=== PATIENT | male | born 1970 | race African-American/Black ===

== ENCOUNTER 2017-05-23 21:24 | Inpatient (IN) | payer MEDICARE ==
[~2017-05-23] VITALS: Ht 185.4 cm; Wt 132.0 kg
[2017-05-23 21:52] VITALS: BP 167/97; PULSE 90; RESP 18; TEMP 99.1; O2SAT 97
[2017-05-23] MEDS ORDERED: RALT400 PO (23:06)
[2017-05-23] MEDS ORDERED: EMTR1TAB5 PO (23:06)
[2017-05-23] MEDS ORDERED: REME30TA PO (23:06)
[2017-05-23] MEDS ORDERED: ABIL30TA5 PO (23:06)
[2017-05-23] MEDS ORDERED: VENL37.5 PO (23:06)
[2017-05-23] MEDS ORDERED: AMLO10 PO (23:06)
--- NOTE | 2017-05-23 23:46 | PD ---
HPI Chief Complaint: Psychiatric Symptoms Time Seen by Provider: 22:36 Travel History International Travel<30 days: No Contact w/Intl Traveler<30days: No Traveled to known affect area: No History of Present Illness HPI 47-year-old black male presents emergency department as a transfer from [facility] under a Pina act for psychological evaluation. The psychiatrist is except of the patient's transfer was placed under a Pina act in the ER. Patient has a history of HIV, substance abuse and depression. Patient had stated that he was going to overdose. Patient was medically cleared and transferred. Here in the ER the patient has no medical complaints. He does admit to feeling depressed and suicidal. He has no vertigo he is homeless. Patient states that his CD4 is over 400. No aids defining disease. PFSH Past Medical History Narrative Medical Depression, HIV Tetanus Vaccination: < 5 Years Social History Alcohol Use: Yes Tobacco Use: Yes Substance Use: Yes (Cocaine) Allergies-Medications Reported Meds & Prescriptions Reported Meds & Active Scripts Active Reported Effexor (Venlafaxine HCl) 37.5 Mg Tab 37.5 Mg PO Q12H Remeron (Mirtazapine) 30 Mg Tab Unknown Dose PO HS Abilify (Aripiprazole) 30 Mg Tab 25 Mg PO DAILY Norvasc (Amlodipine Besylate) 10 Mg Tab 10 Mg PO DAILY Isentress (Raltegravir) 400 Mg Tab 300 Mg PO BID Truvada (Emtricitabine-Tenofovir Disoproxil Fumarate) Unknown Strength Tab Unknown Dose PO DAILY Review of Systems Except as stated in HPI: all other systems reviewed are Neg Physical Exam Narrative GENERAL: Well-nourished, well-developed patient. SKIN: Warm and dry. HEAD: Normocephalic and atraumatic. EYES: No scleral icterus. No injection or drainage. ENT: No nasal drainage noted. Mucous membranes pink. Airway patent. NECK: Supple, trachea midline. Moves head freely without obvious discomfort. CARDIOVASCULAR: Regular rate and rhythm without murmurs, gallops, or rubs. RESPIRATORY: Breath sounds equal bilaterally. No accessory muscle use. GASTROINTESTINAL: Abdomen soft, non-tender, nondistended. EXTREMITIES: No cyanosis or edema. BACK: Nontender without obvious deformity. No CVA tenderness. NEURO: Patient is alert and oriented. no sensorimotor deficits. Nonfocal. Normal speech. PSYCH: No delusions. No auditory or visual hallucinations. Data Data Last Documented VS Vital Signs Date Time Temp Pulse Resp B/P (MAP) Pulse Ox O2 Delivery O2 Flow Rate FiO2 05/23/17 21:52 99.1 90 18 167/97 (120) 97 Room Air Orders Orders Psych Screen (05/23/17 22:37) MDM Medical Decision Making Medical Screen Exam Complete: Yes Emergency Medical Condition: Yes Medical Record Reviewed: Yes Interpretation(s) Laboratory tests reviewed. Differential Diagnosis MDM: High Differential diagnoses: Schizophrenia, schizoaffective disorder, bipolar, anxiety, depression, adjustment reaction, mood disorder NOS, ODD, depressive disorder NOS, dementia, dementia with agitation, psychosis NOS, substance induced mood disorder, DMDD, Asperger syndrome, infection,electrolyte abnormality, malingering. Narrative Course Mental health screening discussed with the patient. Psychiatric screen ordered. The patient has been medically cleared. This is medical clearance for psychiatric admission, substance abuse Diagnosis Primary Impression: Medical clearance for psychiatric admission Additional Impression: Substance abuse Condition: Stable Vega Werner May 23, 2017 23:46
[2017-05-24 02:13] VITALS: BP 157/96; PULSE 75; RESP 18; TEMP 98.2; O2SAT 99
[2017-05-24 06:21] VITALS: BP 143/67; PULSE 78; RESP 18; TEMP 98; O2SAT 98
[2017-05-24] MEDS ORDERED: BENZTROPINE MESYLATE 2 MG/2 ML VIAL IM PRN (07:15)
[2017-05-24] MEDS ORDERED: ACETAMINOPHEN 325 MG TAB PO PRN (07:15)
[2017-05-24] MEDS ORDERED: NICOTINE 21 MG/24 HR PATCH T-DERMAL PRN (07:15)
[2017-05-24] MEDS ORDERED: hydrOXYzine HCL 50 MG TAB PO PRN (07:15)
[2017-05-24] MEDS ORDERED: ALUMINUM/MAGNESIUM/SIMETH 30 ML CUP PO PRN (07:15)
[2017-05-24] MEDS ORDERED: MAGNESIUM HYDROXIDE SUSP 30 ML CUP PO PRN (07:15)
[2017-05-24] MEDS ORDERED: BENZTROPINE MESYLATE 1 MG TAB PO PRN (07:15)
[2017-05-24] MEDS ORDERED: diphenhydrAMINE HCL 50 MG CAP PO PRN (07:15)
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
[2017-05-24 10:57] VITALS: BP 154/104; PULSE 88; RESP 18; TEMP 98.1; O2SAT 99
[2017-05-24] MEDS: ARIPiprazole 10 MG TAB PO SCH (11:15)
[2017-05-24] MEDS: VENLAFAXINE HCL XR 75 MG CAP PO SCH (11:16)
[2017-05-24] MEDS ORDERED: PILL SPLITTER OTHER PRN (12:45)
[2017-05-24] MEDS: RALTEGRAVIR 400 MG TAB PO SCH ×2 (14:02→20:21)
[2017-05-24] MEDS: EMTRICITABINE/TENOFOVIR 200 MG/300 MG TAB PO SCH (14:02)
--- NOTE | 2017-05-24 14:03 | PD.CONS ---
HPI Service [facility] Hospitalists Consult Requested By Dr Valentine Reason for Consult Medical management. Primary Care Physician Unknown Diagnoses: Review of Systems As per HPI, other systems reviewed by me and negative. Past Family Social History Allergies: Coded Allergies: haloperidol (Unverified Allergy, Unknown, 05/24/17) lisinopril (Unverified Allergy, Unknown, 05/24/17) lorazepam (Unverified Allergy, Unknown, 05/24/17) quetiapine (Unverified Allergy, Unknown, 05/24/17) ziprasidone (Unverified Allergy, Unknown, 05/24/17) Past Medical History 1. Hypertension. 2. HIV on HAART. 3. Schizoaffective disorder. Reported Medications Reported Meds & Active Scripts Active Reported Abilify (Aripiprazole) 30 Mg Tab 25 Mg PO DAILY Norvasc (Amlodipine Besylate) 10 Mg Tab 10 Mg PO DAILY Isentress (Raltegravir) 400 Mg Tab 300 Mg PO BID Truvada (Emtricitabine-Tenofovir Disoproxil Fumarate) Unknown Strength Tab Unknown Dose PO DAILY Active Ordered Medications Current Medications Medications (Trade) Dose Ordered Sig/Delma Route Start Time Stop Time Status Last Admin (Norvasc) 10 mg DAILY PO 05/24/17 09:00 05/24/17 11:16 (Abilify) 25 mg DAILY PO 05/24/17 09:00 05/24/17 11:15 (Isentress) 300 mg BID PO 05/24/17 09:00 (Truvada 200-300 Mg) 1 tab DAILY PO 05/24/17 09:00 (Latuda) 40 mg WITH DINNER PO 05/24/17 18:00 (Effexor Xr) 75 mg DAILY PO 05/24/17 09:00 05/24/17 11:16 (Benadryl) 50 mg HS PRN PO 05/24/17 07:15 (Tylenol) 650 mg Q4H PRN PO 05/24/17 07:15 (Milk Of Magnesia Liq) 30 ml DAILY PRN PO 05/24/17 07:15 (Mag-Al Plus Susp Liq) 30 ml Q6H PRN PO 05/24/17 07:15 (Atarax) 50 mg Q6H PRN PO 05/24/17 07:15 (Cogentin) 1 mg Q12H PRN PO 05/24/17 07:15 (Cogentin Inj) 1 mg Q12H PRN IM 05/24/17 07:15 (Habitrol 21 Mg Patch.24 Hr) 1 patch DAILY T-DERMAL 05/24/17 09:00 Miscellaneous Information 1 HS T-DERMAL 05/24/17 21:00 (Pill Splitter) 1 ea UNSCH PRN OTHER 05/24/17 12:45 Physical Exam Vital Signs Vital Signs Date Time Temp Pulse Resp B/P (MAP) Pulse Ox O2 Delivery O2 Flow Rate FiO2 05/24/17 10:57 98.1 88 18 154/104 (121) 99 05/24/17 10:30 05/24/17 06:21 98.0 78 18 143/67 (92) 98 Room Air 05/24/17 02:13 98.2 75 18 157/96 (116) 99 Room Air 05/23/17 21:52 99.1 90 18 167/97 (120) 97 Room Air Physical Exam GENERAL: This is a well-nourished, well-developed patient, in no apparent distress. SKIN: No rashes, ecchymoses or lesions. Cool and dry. HEAD: Atraumatic. Normocephalic. No temporal or scalp tenderness. EYES: Pupils equal round and reactive. Extraocular motions intact. No scleral icterus. No injection or drainage. ENT: Nose without bleeding, purulent drainage or septal hematoma. Throat without erythema, tonsillar hypertrophy or exudate. Uvula midline. Airway patent. NECK: Trachea midline. No JVD or lymphadenopathy. Supple, nontender, no meningeal signs. CARDIOVASCULAR: Regular rate and rhythm without murmurs, gallops, or rubs. RESPIRATORY: Clear to auscultation. Breath sounds equal bilaterally. No wheezes , rales, or rhonchi. GASTROINTESTINAL: Abdomen soft, non-tender, nondistended. No hepato-splenomegaly , or palpable masses. No guarding. MUSCULOSKELETAL: Extremities without clubbing, cyanosis, or edema. No joint tenderness, effusion, or edema noted. No calf tenderness. Negative Homans sign bilaterally. NEUROLOGICAL: Awake and alert. Cranial nerves II through XII intact. Motor and sensory grossly within normal limits. Five out of 5 muscle strength in all muscle groups. Normal speech. Assessment and Plan Problem List: (1) Schizoaffective disorder ICD Code: F25.9 - Schizoaffective disorder, unspecified (2) Substance abuse ICD Code: F19.10 - Other psychoactive substance abuse, uncomplicated Status: Acute (3) HTN (hypertension) ICD Code: I10 - Essential (primary) hypertension Problem Qualifiers (1) Schizoaffective disorder: Qualified Codes: F25.1 - Schizoaffective disorder, depressive type Edison Peterson MD May 24, 2017 14:02
[2017-05-24] MEDS: NICOTINE 21 MG/24 HR PATCH T-DERMAL SCH (14:04)
[2017-05-24] MEDS: LURASIDONE 40 MG TAB PO SCH (17:40)
[2017-05-24] MEDS: REMOVE OLD NICODERM (NICOTINE) PATCH T-DERMAL SCH (21:00)
[2017-05-25 05:58] VITALS: BP 152/83; PULSE 84; RESP 16; TEMP 98.4
[2017-05-25] MEDS: ARIPiprazole 10 MG TAB PO SCH (08:01)
[2017-05-25] MEDS: RALTEGRAVIR 400 MG TAB PO SCH ×2 (08:02→20:38)
[2017-05-25] MEDS: EMTRICITABINE/TENOFOVIR 200 MG/300 MG TAB PO SCH (08:02)
[2017-05-25] MEDS: VENLAFAXINE HCL XR 75 MG CAP PO SCH (08:02)
[2017-05-25] MEDS: NICOTINE 21 MG/24 HR PATCH T-DERMAL SCH (08:05)
[2017-05-25 08:54] LABS: AUTOMATED NEUTROPHIL # 1.8 TH/MM3 (1.8-7.7); BASOPHIL % 0.4 % (0.0-2.0); EOSINOPHIL # 0.1 TH/MM3 (0-0.4); EOSINOPHIL % 3.7 % (0.0-4.0); HEMATOCRIT 39.2 % (39.0-51.0); HEMOGLOBIN 13.3 GM/DL (13.0-17.0); LYMPH % 41.5 % (9.0-44.0); LYMPHOCYTE # 1.6 TH/MM3 (1.0-4.8); MEAN CELL VOLUME 78.1 FL (80.0-100.0); MEAN CORPUSCULAR HEMOGLOBIN 26.6 PG (27.0-34.0); MEAN CORPUSCULAR HGB CONC 34.1 % (32.0-36.0); MEAN PLATELET VOLUME 6.8 FL (7.0-11.0); MONO % 7.6 % (0.0-8.0); MONOCYTE # 0.3 TH/MM3 (0-0.9); NEUT % 46.8 % (16.0-70.0); PLATELET COUNT 251 TH/MM3 (150-450); RED BLOOD COUNT 5.02 MIL/MM3 (4.50-5.90); RED CELL DISTRIBUTION WIDTH 15.6 % (11.6-17.2); WHITE BLOOD COUNT 3.8 TH/MM3 (4.0-11.0)
[2017-05-25 09:20] LABS: CHOLESTEROL 143 MG/DL (120-200); TRIGLYCERIDES 62 MG/DL (42-150)
[2017-05-25 09:21] LABS: CHOLESTEROL/ HDL RATIO 2.79 RATIO; HDL CHOLESTEROL 51.1 MG/DL (40.0-60.0); LDL CHOLESTEROL 80 MG/DL (0-99)
--- NOTE | 2017-05-25 13:56 | HHI.PYPN ---
Subjective Remarks Patient seen in his room with nurse Sana. Patient initially admitted by Dr. Austen Frias's H&P reviewed and agreed with. I have done the psychiatric admission orders template. And reviewed the med reconciliation. Patient seen in his room he is alert oriented calm and reset Afro-Irish male. He is cooperative and pleasant. Acknowledges continued suicidal ideation. Acknowledges past suicide attempts. Acknowledges the cocaine addiction he says it is more he is homeless at the present time. States she is able to do day work and would be a state in a sober house referral locally if possible. Were with the present time he still remains suicidal. Will continue medication as started by Dr. Frias continue to follow. Review of Systems Except as stated in HPI: all other systems reviewed are Neg Mental Status Examination Appearance: Appropriate Consciousness: Alert Orientation: x4 Motor Activity: Normal gait Speech: Unremarkable Language: Adequate Fund of Knowledge: Adequate Attention and Concentration: Adequate Memory: Unremarkable Mood: Sad Affect: Other (decreased range and intensity) Thought Process & Associations: Intact Thought Content: Appropriate, Hallucinations (some vague voices) Hallucination Type: Auditory (some vague auditory hallucinations) Delusion Type: None Suicidal Ideation: Yes Suicidal Plan: No Suicidal Intention: No Homicidal Ideation: No Homicidal Plan: No Homicidal Intention: No Insight: Fair Judgment: Impulsive Results Labs Test 05/25/17 07:59 White Blood Count 3.8 TH/MM3 Red Blood Count 5.02 MIL/MM3 Hemoglobin 13.3 GM/DL Hematocrit 39.2 % Mean Corpuscular Volume 78.1 FL Mean Corpuscular Hemoglobin 26.6 PG Mean Corpuscular Hemoglobin Concent 34.1 % Red Cell Distribution Width 15.6 % Platelet Count 251 TH/MM3 Mean Platelet Volume 6.8 FL Neutrophils (%) (Auto) 46.8 % Lymphocytes (%) (Auto) 41.5 % Monocytes (%) (Auto) 7.6 % Eosinophils (%) (Auto) 3.7 % Basophils (%) (Auto) 0.4 % Neutrophils # (Auto) 1.8 TH/MM3 Lymphocytes # (Auto) 1.6 TH/MM3 Monocytes # (Auto) 0.3 TH/MM3 Eosinophils # (Auto) 0.1 TH/MM3 Basophils # (Auto) 0.0 TH/MM3 CBC Comment DIFF FINAL Differential Comment Triglycerides Level 62 MG/DL Cholesterol Level 143 MG/DL LDL Cholesterol 80 MG/DL HDL Cholesterol 51.1 MG/DL Cholesterol/HDL Ratio 2.79 RATIO Vitals/IOs Vital Signs Date Time Temp Pulse Resp B/P (MAP) Pulse Ox O2 Delivery O2 Flow Rate FiO2 05/25/17 05:58 98.4 84 16 152/83 (106) 05/24/17 10:57 99 05/24/17 06:21 Room Air Assessment & Plan Problem List: (1) Schizoaffective disorder ICD Codes: F25.9 - Schizoaffective disorder, unspecified (2) Substance abuse ICD Codes: F19.10 - Other psychoactive substance abuse, uncomplicated Status: Acute Assessment & Plan Estimated LOS: days this time patient meets criteria for inpatient psychiatric hospitalization on a voluntary basis. We'll start medication as described to Dr. Frias. Also his be short stay and seemed less patient also make a referral to sober living facility Justification for Cont. Inpt. At this time patient decompensated placed a lower level of care Discharge Planning Consider sober living facility Request HC Surrog/Guard Advoc?: No Problem Qualifiers (1) Schizoaffective disorder: Qualified Codes: F25.1 - Schizoaffective disorder, depressive type Jose Holt MD May 25, 2017 13:56
[2017-05-25] MEDS ORDERED: hydrOXYzine HCL 50 MG TAB PO PRN (14:00)
--- NOTE | 2017-05-25 15:51 | PD.CONS ---
HPI Service [facility] Hospitalists Consult Requested By Dr Valentine Reason for Consult Medical management. Primary Care Physician Unknown Diagnoses: (1) Schizoaffective disorder (2) Substance abuse (3) HTN (hypertension) History of Present Illness This is a 47-year-old -Q[place] male with past nuchal history of hypertension, HIV, schizoaffective disorder and cocaine abuse, who presents to [facility] as a transfer from an outside hospital under a Pina act. Documentation from outside the hospital stated that the patient made suicidal statements. The patient states that he still suicidal and feels depressed. The patient denies any chest pain, shortness of breath, headache, blurry vision, double vision, dysuria, abdominal pain, nausea, vomiting, diarrhea. I am being consulted for medical management of the patient. Patient has history of HIV on HAART on the patient states that he is compliant with his medications. Review of Systems As per HPI, other systems reviewed by me and negative. Past Family Social History Allergies: Coded Allergies: haloperidol (Unverified Allergy, Unknown, 05/24/17) lisinopril (Unverified Allergy, Unknown, 05/24/17) lorazepam (Unverified Allergy, Unknown, 05/24/17) quetiapine (Unverified Allergy, Unknown, 05/24/17) ziprasidone (Unverified Allergy, Unknown, 05/24/17) Past Medical History 1. Hypertension. 2. HIV on HAART. 3. Cocaine abuse. 4. Schizophrenic disorder. Past Surgical History Denies surgeries Reported Medications Reported Meds & Active Scripts Active Reported Abilify (Aripiprazole) 30 Mg Tab 25 Mg PO DAILY Norvasc (Amlodipine Besylate) 10 Mg Tab 10 Mg PO DAILY Isentress (Raltegravir) 400 Mg Tab 300 Mg PO BID Truvada (Emtricitabine-Tenofovir Disoproxil Fumarate) Unknown Strength Tab Unknown Dose PO DAILY Active Ordered Medications Current Medications Medications (Trade) Dose Ordered Sig/Delma Route Start Time Stop Time Status Last Admin (Norvasc) 10 mg DAILY PO 05/24/17 09:00 05/25/17 08:02 (Abilify) 25 mg DAILY PO 05/24/17 09:00 05/25/17 08:01 (Isentress) 300 mg BID PO 05/24/17 09:00 3/6/18 08:02 (Truvada 200-300 Mg) 1 tab DAILY PO 05/24/17 09:00 05/25/17 08:02 (Latuda) 40 mg WITH DINNER PO 05/24/17 18:00 05/24/17 17:40 (Effexor Xr) 75 mg DAILY PO 05/24/17 09:00 05/25/17 08:02 (Benadryl) 50 mg HS PRN PO 05/24/17 07:15 05/24/17 20:44 (Tylenol) 650 mg Q4H PRN PO 05/24/17 07:15 (Milk Of Magnesia Liq) 30 ml DAILY PRN PO 05/24/17 07:15 (Mag-Al Plus Susp Liq) 30 ml Q6H PRN PO 05/24/17 07:15 (Cogentin) 1 mg Q12H PRN PO 05/24/17 07:15 (Cogentin Inj) 1 mg Q12H PRN IM 05/24/17 07:15 (Habitrol 21 Mg Patch.24 Hr) 1 patch DAILY T-DERMAL 05/24/17 09:00 Miscellaneous Information 1 HS T-DERMAL 05/24/17 21:00 (Pill Splitter) 1 ea UNSCH PRN OTHER 05/24/17 12:45 (Atarax) 50 mg Q6H PRN PO 05/25/17 14:00 Family History Patient states that paternal uncle has hypertension or diabetes. Social History The patient denies smoking. Drinks alcohol on the weekends. Admits to cocaine use. Physical Exam Vital Signs Vital Signs Date Time Temp Pulse Resp B/P (MAP) Pulse Ox O2 Delivery O2 Flow Rate FiO2 05/25/17 05:58 98.4 84 16 152/83 (106) Physical Exam GENERAL: This is a well-nourished, well-developed patient, in no apparent distress. SKIN: No rashes, ecchymoses or lesions. Cool and dry. HEAD: Atraumatic. Normocephalic. No temporal or scalp tenderness. EYES: Pupils equal round and reactive. Extraocular motions intact. No scleral icterus. No injection or drainage. ENT: Nose without bleeding, purulent drainage or septal hematoma. Throat without erythema, tonsillar hypertrophy or exudate. Uvula midline. Airway patent. NECK: Trachea midline. No JVD or lymphadenopathy. Supple, nontender, no meningeal signs. CARDIOVASCULAR: Regular rate and rhythm without murmurs, gallops, or rubs. RESPIRATORY: Clear to auscultation. Breath sounds equal bilaterally. No wheezes , rales, or rhonchi. GASTROINTESTINAL: Abdomen soft, non-tender, nondistended. No hepato-splenomegaly , or palpable masses. No guarding. MUSCULOSKELETAL: Extremities without clubbing, cyanosis, or edema. No joint tenderness, effusion, or edema noted. No calf tenderness. Negative Homans sign bilaterally. NEUROLOGICAL: Awake and alert. Cranial nerves II through XII intact. Motor and sensory grossly within normal limits. Five out of 5 muscle strength in all muscle groups. Normal speech. Laboratory Laboratory Tests Test 05/25/17 07:59 White Blood Count 3.8 Red Blood Count 5.02 Hemoglobin 13.3 Hematocrit 39.2 Mean Corpuscular Volume 78.1 Mean Corpuscular Hemoglobin 26.6 Mean Corpuscular Hemoglobin Concent 34.1 Red Cell Distribution Width 15.6 Platelet Count 251 Mean Platelet Volume 6.8 Neutrophils (%) (Auto) 46.8 Lymphocytes (%) (Auto) 41.5 Monocytes (%) (Auto) 7.6 Eosinophils (%) (Auto) 3.7 Basophils (%) (Auto) 0.4 Neutrophils # (Auto) 1.8 Lymphocytes # (Auto) 1.6 Monocytes # (Auto) 0.3 Eosinophils # (Auto) 0.1 Basophils # (Auto) 0.0 CBC Comment DIFF FINAL Differential Comment Triglycerides Level 62 Cholesterol Level 143 LDL Cholesterol 80 HDL Cholesterol 51.1 Cholesterol/HDL Ratio 2.79 Result Diagram: 05/25/17 0759 Assessment and Plan Problem List: (1) Schizoaffective disorder ICD Code: F25.9 - Schizoaffective disorder, unspecified (2) Substance abuse ICD Code: F19.10 - Other psychoactive substance abuse, uncomplicated Status: Acute (3) HTN (hypertension) ICD Code: I10 - Essential (primary) hypertension Assessment and Plan 1. Schizoaffective disorder. Management as per psychiatry. Patient currently on Latuda, Abilify and Effexor. 2. Hypertension. Continue amlodipine 10 mg p.o. daily. Monitor vital signs. If needed I will start the patient on a second antihypertensive medication. 3. HIV Continue HAART. 4. Leukopenia. WBC 3.8. Likely related to HIV. Continue to monitor CBC. 5. DVT prophylaxis. SCDs, and cord stimulation. Code Status Full code Discussed Condition With Patient, RN Problem Qualifiers (1) Schizoaffective disorder: Qualified Codes: F25.1 - Schizoaffective disorder, depressive type Edison Peterson MD May 25, 2017 15:51
[2017-05-25 16:15] LABS: HEMOGLOBIN A1C 5.4 % (4.3-6.0)
[2017-05-25] MEDS: LURASIDONE 40 MG TAB PO SCH (16:38)
[2017-05-25 18:07] VITALS: BP 129/68; PULSE 78; RESP 18; TEMP 97.9; O2SAT 98
[2017-05-25] MEDS: REMOVE OLD NICODERM (NICOTINE) PATCH T-DERMAL SCH (21:00)
[2017-05-26 05:33] VITALS: BP 120/68; PULSE 74; RESP 18; TEMP 98.3; O2SAT 96
--- NOTE | 2017-05-26 08:26 | EKG ---
Date Performed: 05/24/2017 Time Performed: 14:28:45 PTAGE: 47 years EKG: Sinus rhythm INFERIOR T-WAVE ABNORMALITIES SUGGESTING ISCHEMIA CLINICAL CORRELATION IS NEEDED NO PREVIOUS TRACING DOCTOR: Ryan Patel Interpretating Date/Time 05/26/2017 08:25:44
[2017-05-26] MEDS: NICOTINE 21 MG/24 HR PATCH T-DERMAL SCH (09:00)
[2017-05-26] MEDS: RALTEGRAVIR 400 MG TAB PO SCH ×2 (10:35→20:37)
[2017-05-26] MEDS: ARIPiprazole 10 MG TAB PO SCH (10:36)
[2017-05-26] MEDS: EMTRICITABINE/TENOFOVIR 200 MG/300 MG TAB PO SCH (10:37)
[2017-05-26] MEDS: VENLAFAXINE HCL XR 75 MG CAP PO SCH (10:37)
[2017-05-26 12:25] LABS: HEMATOCRIT 38.4 % (39.0-51.0); HEMOGLOBIN 13.3 GM/DL (13.0-17.0); MEAN CORPUSCULAR HEMOGLOBIN 26.9 PG (27.0-34.0); MEAN CORPUSCULAR HGB CONC 34.5 % (32.0-36.0); MEAN PLATELET VOLUME 6.7 FL (7.0-11.0); PLATELET COUNT 242 TH/MM3 (150-450); RED BLOOD COUNT 4.93 MIL/MM3 (4.50-5.90); RED CELL DISTRIBUTION WIDTH 15.8 % (11.6-17.2); WHITE BLOOD COUNT 4.3 TH/MM3 (4.0-11.0)
--- NOTE | 2017-05-26 12:40 | HHI.PYPN ---
Subjective Remarks She seen in his room with floor staff, chart review, patient discussed with nurse. Patient is auditory hallucinations that are intrusive somewhat severe threatening, although the patient is unable contract was to do no harm. He vague about suicidality at this time. Where we somewhat optimistic about exploring sober living facilities here in town. For now continue treatment no change Review of Systems Except as stated in HPI: all other systems reviewed are Neg Mental Status Examination Appearance: Appropriate Consciousness: Alert Orientation: x4 Motor Activity: Normal gait Speech: Unremarkable Language: Adequate Fund of Knowledge: Adequate Attention and Concentration: Adequate Memory: Unremarkable Mood: Sad Affect: Other Thought Process & Associations: Intact Thought Content: Appropriate, Hallucinations Hallucination Type: Auditory Delusion Type: None Suicidal Ideation: Yes Suicidal Plan: No Suicidal Intention: No Homicidal Ideation: No Homicidal Plan: No Homicidal Intention: No Insight: Fair Judgment: Impulsive Results Labs Test 05/26/17 12:07 White Blood Count 4.3 TH/MM3 Red Blood Count 4.93 MIL/MM3 Hemoglobin 13.3 GM/DL Hematocrit 38.4 % Mean Corpuscular Volume 78.0 FL Mean Corpuscular Hemoglobin 26.9 PG Mean Corpuscular Hemoglobin Concent 34.5 % Red Cell Distribution Width 15.8 % Platelet Count 242 TH/MM3 Mean Platelet Volume 6.7 FL Vitals/IOs Vital Signs Date Time Temp Pulse Resp B/P (MAP) Pulse Ox O2 Delivery O2 Flow Rate FiO2 05/26/17 05:33 98.3 74 18 120/68 (85) 96 05/24/17 06:21 Room Air Intake and Output 05/26/17 05/26/17 05/27/17 08:00 16:00 00:00 Intake Total 240 ml Balance 240 ml Assessment & Plan Problem List: (1) Schizoaffective disorder ICD Codes: F25.9 - Schizoaffective disorder, unspecified (2) Substance abuse ICD Codes: F19.10 - Other psychoactive substance abuse, uncomplicated Status: Acute Assessment & Plan Estimated LOS: days patient continues depressed suicidal auditory hallucinations, compliant medication, for now continue treatment Justification for Cont. Inpt. At this time patient will decompensate and placed a lower level of care Discharge Planning Leading to explore sober living situations Request HC Surrog/Guard Advoc?: No Problem Qualifiers (1) Schizoaffective disorder: Qualified Codes: F25.1 - Schizoaffective disorder, depressive type Jose Holt MD May 26, 2017 12:40
[2017-05-26] MEDS: LURASIDONE 40 MG TAB PO SCH (17:19)
[2017-05-26 17:49] VITALS: BP 120/64; PULSE 84; RESP 18; TEMP 98.3; O2SAT 98
[2017-05-26 18:29] VITALS: BP 130/72; PULSE 18; RESP 18; TEMP 98.2; O2SAT 81
--- NOTE | 2017-05-26 19:06 | HHI.PR ---
Subjective Remarks Patient denies cp/sob. Denies headache bp stable Objective Vitals Vital Signs Date Time Temp Pulse Resp B/P (MAP) Pulse Ox O2 Delivery O2 Flow Rate FiO2 05/26/17 18:29 98.2 18 18 130/72 (91) 81 05/26/17 17:49 98.3 84 18 120/64 (82) 98 05/26/17 05:33 98.3 74 18 120/68 (85) 96 I/O 05/25/17 05/25/17 05/25/17 05/26/17 05/26/17 05/26/17 07:00 15:00 23:00 07:00 15:00 23:00 Intake Total 360 ml 240 ml 480 ml Balance 360 ml 240 ml 480 ml Intake Oral 360 ml 240 ml 480 ml Result Diagram: 05/26/17 1207 Objective Remarks AAOx3 nad Clear lungs BL S1S2 (+) Abdomen soft, nt, nd no edema in all extremities Medications and IVs Current Medications Medications (Trade) Dose Ordered Sig/Delma Route Start Time Stop Time Status Last Admin (Norvasc) 10 mg DAILY PO 05/24/17 09:00 05/26/17 10:37 (Abilify) 25 mg DAILY PO 05/24/17 09:00 05/26/17 10:36 (Isentress) 300 mg BID PO 05/24/17 09:00 05/26/17 20:37 (Truvada 200-300 Mg) 1 tab DAILY PO 05/24/17 09:00 05/26/17 10:37 (Latuda) 40 mg WITH DINNER PO 05/24/17 18:00 05/26/17 17:19 (Effexor Xr) 75 mg DAILY PO 05/24/17 09:00 05/26/17 10:37 (Benadryl) 50 mg HS PRN PO 05/24/17 07:15 05/24/17 20:44 (Tylenol) 650 mg Q4H PRN PO 05/24/17 07:15 (Milk Of Magnesia Liq) 30 ml DAILY PRN PO 05/24/17 07:15 (Mag-Al Plus Susp Liq) 30 ml Q6H PRN PO 05/24/17 07:15 (Cogentin) 1 mg Q12H PRN PO 05/24/17 07:15 (Cogentin Inj) 1 mg Q12H PRN IM 05/24/17 07:15 (Habitrol 21 Mg Patch.24 Hr) 1 patch DAILY T-DERMAL 05/24/17 09:00 Miscellaneous Information 1 HS T-DERMAL 05/24/17 21:00 (Pill Splitter) 1 ea UNSCH PRN OTHER 05/24/17 12:45 (Atarax) 50 mg Q6H PRN PO 05/25/17 14:00 A/P Problem List: (1) Schizoaffective disorder ICD Code: F25.9 - Schizoaffective disorder, unspecified (2) Substance abuse ICD Code: F19.10 - Other psychoactive substance abuse, uncomplicated Status: Acute (3) HTN (hypertension) ICD Code: I10 - Essential (primary) hypertension Assessment and Plan 1. Schizoaffective disorder. Management as per psychiatry. Patient currently on Latuda, Abilify and Effexor. 2. Hypertension. Continue amlodipine 10 mg p.o. daily. Monitor vital signs. bp stable 3. HIV Continue HAART. 4. Leukopenia. WBC 3.8. Likely related to HIV. Continue to monitor CBC. 3/ WBC better. monitor cbc 5. DVT prophylaxis. SCDs, encourage ambulation. Discharge Planning Will sign off - please reconsult if needed. DC per primary Problem Qualifiers (1) Schizoaffective disorder: Qualified Codes: F25.1 - Schizoaffective disorder, depressive type Edison Peterson MD May 26, 2017 19:06
[2017-05-26] MEDS: REMOVE OLD NICODERM (NICOTINE) PATCH T-DERMAL SCH (20:37)
[2017-05-27 05:43] VITALS: BP 134/82; PULSE 68; RESP 16; TEMP 98.3; O2SAT 96
[2017-05-27] MEDS: NICOTINE 21 MG/24 HR PATCH T-DERMAL SCH (09:00)
[2017-05-27] MEDS: ARIPiprazole 10 MG TAB PO SCH (09:05)
[2017-05-27] MEDS: VENLAFAXINE HCL XR 75 MG CAP PO SCH (09:05)
[2017-05-27] MEDS: EMTRICITABINE/TENOFOVIR 200 MG/300 MG TAB PO SCH (09:06)
[2017-05-27] MEDS: RALTEGRAVIR 400 MG TAB PO SCH ×2 (09:06→20:15)
--- NOTE | 2017-05-27 14:00 | HHI.PYPN ---
Subjective Remarks Patient seen in day room with nurse Kirti, chart reviewed, patient discussed with nurse. Patient sitting near telephone the list of shelters in his hand as if he is making an effort to find placement. He continues to give no acceptable reason for the multiple frequent psychiatric hospitalizations. He denies suicidality at this time is somewhat vague about voices at this time. He knows he is being discharged tomorrow and is accepting that at this time, compliant medications Review of Systems Except as stated in HPI: all other systems reviewed are Neg Mental Status Examination Appearance: Appropriate Consciousness: Alert Orientation: x4 Motor Activity: Normal gait Speech: Unremarkable Language: Adequate Fund of Knowledge: Adequate Attention and Concentration: Adequate Memory: Unremarkable Mood: Sad Affect: Other Thought Process & Associations: Intact Thought Content: Appropriate, Hallucinations Hallucination Type: Auditory Delusion Type: None Suicidal Ideation: Yes Suicidal Plan: No Suicidal Intention: No Homicidal Ideation: No Homicidal Plan: No Homicidal Intention: No Insight: Fair Judgment: Impulsive Results Vitals/IOs Vital Signs Date Time Temp Pulse Resp B/P (MAP) Pulse Ox O2 Delivery O2 Flow Rate FiO2 05/27/17 05:43 98.3 68 16 134/82 (99) 96 05/24/17 06:21 Room Air Intake and Output 05/27/17 05/27/17 05/28/17 08:00 16:00 00:00 Intake Total 480 ml Balance 480 ml Assessment & Plan Problem List: (1) Schizoaffective disorder ICD Codes: F25.9 - Schizoaffective disorder, unspecified (2) Substance abuse ICD Codes: F19.10 - Other psychoactive substance abuse, uncomplicated Status: Acute Assessment & Plan Estimated LOS: days patient somewhat calmer though still showing little insight , now denies suicidality acknowledges persistence of the voices COMPLIANT with medication. And he is anticipating his discharge tomorrow Justification for Cont. Inpt. At this time patient with decompensated placed in lower level of care Discharge Planning Patient working at this time to find placement Request HC Surrog/Guard Advoc?: No Problem Qualifiers (1) Schizoaffective disorder: Qualified Codes: F25.1 - Schizoaffective disorder, depressive type Jose Holt MD May 27, 2017 14:00
[2017-05-27] MEDS: LURASIDONE 40 MG TAB PO SCH (17:30)
[2017-05-27 17:42] VITALS: BP 121/74; PULSE 86; RESP 14; TEMP 98.2; O2SAT 100
[2017-05-27] MEDS: REMOVE OLD NICODERM (NICOTINE) PATCH T-DERMAL SCH (20:17)
[2017-05-28 05:19] VITALS: BP 125/70; PULSE 78; RESP 16; TEMP 98.5; O2SAT 97
[2017-05-28] MEDS: NICOTINE 21 MG/24 HR PATCH T-DERMAL SCH (09:00)
[2017-05-28] MEDS: ARIPiprazole 10 MG TAB PO SCH (10:27)
[2017-05-28] MEDS: VENLAFAXINE HCL XR 75 MG CAP PO SCH (10:27)
[2017-05-28] MEDS: RALTEGRAVIR 400 MG TAB PO SCH (10:28)
[2017-05-28] MEDS: EMTRICITABINE/TENOFOVIR 200 MG/300 MG TAB PO SCH (10:28)
[2017-05-28] MEDS ORDERED: ABIL20TA5 PO (12:54)
[2017-05-28] MEDS ORDERED: AMLO10 PO (12:54)
[2017-05-28] MEDS ORDERED: VENL75XR PO (12:54)
[2017-05-28] MEDS ORDERED: LURA40 PO (12:54)
[2017-05-28] MEDS ORDERED: TRUV200300 PO (12:54)
--- NOTE | 2017-05-28 13:06 | HHI.DS ---
Psychiatry Discharge Summary Inpatient Psychiatric care?: Yes Advance Directive: No Reason Not Provided: Declined Mental Health AdvanceDirective: No Health Care Proxy: No Admission Admission Date May 24, 2017 at 07:05 Admission Diagnosis: (1) Schizoaffective disorder ICD Code: F25.9 - Schizoaffective disorder, unspecified Brief History Please see EMR for initial psychiatric evaluation dictated by Dr. Austen Frias Tobacco Use In Past 30 Days: No Tobacco Past 30 Days Alcohol Use: 2-3 Times Per Week Hospital Course Patient's hospital course was uneventful. Is been compliant with his medications. Now is vague about any continued auditory hallucinations does denies suicidality. He became somewhat contrite and isolating more when confronted with his multiple psychiatric hospitalization. 38 psychiatric hospitalizations in 2017, this is his eighth hospitalization so far 2018. He has made efforts at finding placements both here and in [place]. Patient to be discharged today to himself Rx 1 month we're attempting to fill also is retroviral scripts. When he should follow-up Mr. Nieto act to remains local follow-up mental health in [place] along with follow-up medically related to his medical conditions Results Blood Pressure 125 / 70 Vital Signs Date Time Temp Pulse Resp B/P (MAP) Pulse Ox O2 Delivery O2 Flow Rate FiO2 05/28/17 05:19 98.5 78 16 125/70 (88) 97 Laboratory Tests Test 05/26/17 12:07 Hematocrit 38.4 % (39.0-51.0) Mean Corpuscular Volume 78.0 FL (80.0-100.0) Mean Corpuscular Hemoglobin 26.9 PG (27.0-34.0) Mean Platelet Volume 6.7 FL (7.0-11.0) Laboratory Results Test 05/25/17 07:59 Cholesterol Level 143 MG/DL (120-200) HDL Cholesterol 51.1 MG/DL (40.0-60.0) Hemoglobin A1c 5.4 % (4.3-6.0) LDL Cholesterol 80 MG/DL (0-99) Triglycerides Level 62 MG/DL (42-150) Summary of Procedures None done Pending results at discharge: No Medications # of Antipsychotic meds at D/C: 2 Appropriate >1 Antipsych meds?: 2 (would suggest outpatient clinician gradually wean patient off the Abilify as he adjusts Latuda) Approp Antipsych med options 1 - Minimum of three failed multiple trials of monotherapy. 2 - Documented plan to taper to monotherapy due to previous use of multiple meds OR cross-taper in progress at D/C. 3 - Documentation of augmentation of Clozapine. 4 - Justification other than those listed in allowable values 1-3, document here : Discharge Discharge Date: May 28, 2017 Discharge Diagnosis: (1) Schizoaffective disorder Diagnosis: Principal ICD Code: F25.9 - Schizoaffective disorder, unspecified Pt Condition on Discharge: Stable Discharge Disposition: Discharge Home Discharge Instructions Diet Instructions: As Tolerated, No Restrictions Activities you can perform: Regular-No Restrictions Scheduled Appointment: [facility] Time > 30 minutes Mental Status Examination Appearance: Appropriate Consciousness: Alert Orientation: x4 Motor Activity: Normal gait Speech: Unremarkable Language: Adequate Fund of Knowledge: Adequate Attention and Concentration: Adequate Memory: Unremarkable Mood: Sad Affect: Other Thought Process & Associations: Intact Thought Content: Appropriate, Hallucinations Hallucination Type: Auditory Delusion Type: None Suicidal Ideation: Yes Suicidal Plan: No Suicidal Intention: No Homicidal Ideation: No Homicidal Plan: No Homicidal Intention: No Insight: Fair Judgment: Impulsive Discharge/Advance Care Plan Health Problems: (1) Schizoaffective disorder (2) Substance abuse Goals to promote your health * To prevent worsening of your condition and complications * To maintain your health at the optimal level Directions to meet your goals Take your medications as prescribed Follow your dietary instruction Follow activity as directed Keep your appointments as scheduled Take your immunizations and boosters as scheduled If your symptoms worsen call your PCP, if no PCP go to Urgent Care Center or Emergency Room For 12/10 questions related to your inpatient stay or results of tests pending at discharge, please contact Dr. Jose Holt at Smoking is Dangerous to Your Health. Avoid second hand smoking Problem Qualifiers (1) Schizoaffective disorder: Qualified Codes: F25.1 - Schizoaffective disorder, depressive type Jose Holt MD May 28, 2017 13:06
[2017-05-28] MEDS ORDERED: RALT400 PO (13:10)
[2017-05-28] MEDS: LURASIDONE 40 MG TAB PO SCH (16:22)
== END 2017-05-28 16:50 | disposition home or self-care (01) | DRG 885 ==
LOC: NEPJ 21:24 → NEDA 05-24 07:05 → H260 05-24 10:45
PROVIDERS: ADMIT Psychiatry & Neurology Psychiatry; ATTEND Psychiatry & Neurology Psychiatry
DX: F25.1 Schizoaffective disorder, depressive type (principal); B20 Human immunodeficiency virus [HIV] disease; R45.851 Suicidal ideations; F14.20 Cocaine dependence, uncomplicated; F19.10 Other psychoactive substance abuse, uncomplicated; D72.819 Decreased white blood cell count, unspecified; I10 Essential (primary) hypertension; Z79.899 Other long term (current) drug therapy; Z72.0 Tobacco use; Z59.0 Homelessness; Z91.5 Personal history of self-harm
CPT/HCPCS: 80061; 83036; 85025; 85027; 93005; 99285; Q0163